=== PATIENT | female | born 1975 | race Two or more races ===

== ENCOUNTER → 2022-08-22 | Outpatient (CLI) | payer BC ==
[2022-08-22 11:42] LABS: Potassium 3.9 mmol/L (3.5-5.1)
[2022-08-22 11:54] LABS: Follicle Stimulating Hormone 9.43 IU/L (SEE BELOW); Free T4 (Free Thyroxine) 0.95 ng/dL (0.89-1.76)
[2022-08-22 12:12] LABS: Albumin 3.8 g/dL (3.4-5.0); BUN/Creatinine Ratio 22.4 (10.0-20.0); Bilirubin, Total 0.4 mg/dL (0.2-1.0); Calcium 8.8 mg/dL (8.5-10.1); Total Protein 7.5 g/dL (6.4-8.2); Uric Acid 3.6 mg/dL (2.6-6.0)
== END | disposition home or self-care (01) ==
LOC: LAB 10:09
PROVIDERS: ATTEND Student in an Organized Health Care Education/Training Program
DX: N92.6 Irregular menstruation, unspecified (principal); E55.9 Vitamin D deficiency, unspecified; R73.9 Hyperglycemia, unspecified; R53.83 Other fatigue; R03.0 Elevated blood-pressure reading, without diagnosis of hypertension; M25.50 Pain in unspecified joint
CPT/HCPCS: 36415; 80053; 80061; 82306; 82670; 83001; 83036; 84439; 84443; 84550; 86431

== ENCOUNTER → 2022-12-05 | Outpatient (CLI) | payer BC ==
[2022-12-05 13:18] LABS: Free T4 (Free Thyroxine) 0.98 ng/dL (0.89-1.76)
[2022-12-05 13:19] LABS: T3 Total 1.27 ng/mL (0.60-1.81)
== END | disposition home or self-care (01) ==
LOC: LAB 12:11
PROVIDERS: ATTEND Student in an Organized Health Care Education/Training Program
DX: E04.2 Nontoxic multinodular goiter (principal)
CPT/HCPCS: 36415; 84439; 84443; 84480

== ENCOUNTER → 2024-09-13 | Outpatient (CLI) | payer BC ==
[2024-09-13 12:04] LABS: Urine Bacteria None Seen /hpf (None Seen)
[2024-09-13 12:12] LABS: Urine Blood 2+ /uL (Negative); Urine Clarity Clear (Clear); Urine Color Light-Yellow (Yellow); Urine Protein, UAD Negative (Negative); Urine Specific Gravity 1.009 (1.001-1.035); Urine Squamous Epithelial Cell FEW /hpf (<5); Urine Urobilinogen Normal (Negative); Urine WBC 4 /HPF (0-5)
[2024-09-13 12:31] LABS: Alanine Aminotransferase 29 U/L (7-40); Albumin 4.6 g/dL (3.2-4.8); Alkaline Phosphatase 118 U/L (46-116); Anion Gap 9 (5-15); Aspartate Aminotransferase 20 U/L (13-40); BUN/Creatinine Ratio 23.2 (10.0-20.0); Blood Urea Nitrogen 13 mg/dL (9-23); Calcium 9.4 mg/dL (8.7-10.4); Carbon Dioxide 26 mmol/L (20-31); Chloride 106 mmol/L (98-107); Glucose 93 mg/dL (74-106); LDL Cholesterol 132 mg/dL (< 100); Magnesium 2.1 mg/dL (1.6-2.6); Potassium 3.7 mmol/L (3.5-5.1); Sodium 141 mmol/L (136-145); Total Protein 7.5 g/dL (5.7-8.2); Triglycerides 75 mg/dL (< 150)
[2024-09-13 12:32] LABS: Bilirubin, Total 0.5 mg/dL (0.2-1.0); Cholesterol 180 mg/dL (< 200); HDL Cholesterol 44 mg/dL (40-59)
[2024-09-13 12:47] LABS: Uric Acid 4.3 mg/dL (3.1-7.8)
[2024-09-13 14:05] LABS: Free T3 3.46 pg/mL (2.3-4.2); Free T4 (Free Thyroxine) 0.99 ng/dL (0.89-1.76)
[2024-09-13 14:06] LABS: Follicle Stimulating Hormone 35.69 IU/L (SEE BELOW); Leuteinizing Hormone 27.9 IU/L; Prolactin 5.44 ng/mL (2.8-29.2); T3 Total 1.23 ng/mL (0.60-1.81)
[2024-09-14 08:07] LABS: Estradiol 15.5 pg/mL (.)
== END | disposition home or self-care (01) ==
LOC: LAB 11:22
PROVIDERS: ATTEND Family Medicine
DX: Z00.00 Encounter for general adult medical examination without abnormal findings (principal); Z71.3 Dietary counseling and surveillance; Z68.31 Body mass index [BMI] 31.0-31.9, adult
CPT/HCPCS: 36415; 80053; 80061; 81001; 82306; 82607; 82626; 82670; 83001; 83002; 83036; 83540; 83550; 83735; 84144; 84146; 84402; 84403; 84439; 84443; 84480; 84481; 84550; 87086

== ENCOUNTER → 2025-01-27 | Outpatient (CLI) | payer BC ==
[2025-01-27 13:08] LABS: Triglycerides 83 mg/dL (< 150)
[2025-01-27 13:10] LABS: Cholesterol 182 mg/dL (< 200); HDL Cholesterol 41 mg/dL (40-59)
== END | disposition home or self-care (01) ==
LOC: LAB 12:31
PROVIDERS: ATTEND Family Medicine
DX: E78.00 Pure hypercholesterolemia, unspecified (principal); E55.9 Vitamin D deficiency, unspecified; R73.09 Other abnormal glucose
CPT/HCPCS: 36415; 80061; 82306; 83036

== ENCOUNTER 2025-01-31 14:32 | Outpatient (CLI) | payer BC | END 2025-01-31 17:00 | disposition home or self-care (01) | LOC: LAB 14:32 | PROVIDERS: ATTEND Family Medicine | DX: E78.00 Pure hypercholesterolemia, unspecified (principal); E55.9 Vitamin D deficiency, unspecified; R73.09 Other abnormal glucose | CPT/HCPCS: 82270; 82272 ==